=== PATIENT | male | born 1965 | race Caucasian/White ===

== ENCOUNTER 2023-07-14 01:20 | Emergency (ER) | payer OTHER ==
[~2023-07-14] VITALS: Ht 170.2 cm; Wt 81.0 kg
[2023-07-14 01:35] VITALS: BP 127/88; PULSE 79; RESP 16; TEMP 98.8; O2SAT 98
[2023-07-14] MEDS ORDERED: IBUP-2029 MT (05:07)
== END 2023-07-14 05:16 | disposition home or self-care (01) ==
LOC: ER 01:20
DX: S83.92XA Sprain of unspecified site of left knee, initial encounter (principal); E11.9 Type 2 diabetes mellitus without complications; Z88.0 Allergy status to penicillin; X58.XXXA Exposure to other specified factors, initial encounter; Y93.89 Activity, other specified; Y92.89 Other specified places as the place of occurrence of the external cause; Y99.8 Other external cause status
CPT/HCPCS: 73562; 99283